=== PATIENT | male | born 1960 | race Caucasian/White ===

== ENCOUNTER 2016-09-07 11:38 | Observation (INO) | payer MEDICAID, OTHER ==
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
[2016-09-07 12:02] LABS: Hematocrit 39.2 % (42.0-52.0); Hemoglobin 13.4 gm/dL (13.5-18.0); Mean Cell Volume 88.7 fl (78-100); Mean Corpuscular Hemoglobin 30.3 pg (27-31); Mean Corpuscular Hgb Conc 34.2 g/dl (32-36); Mean Platelet Volume 9.9 fl (6.0-9.5); Neutrophil # 2.8 K/mm3 (1.3-6.0); Neutrophil % 53.4 % (42-75.0); Platelet Count 209 K/mm3 (150-450); Red Blood Count 4.42 M/mm3 (4.7-6.0); Red Cell Distribution Width 12.3 % (11.5-14.0); White Blood Count 5.2 K/mm3 (4.0-10.5)
[2016-09-07 12:26] LABS: ALT 20 U/L (19-67); AST 15 U/L (0-48); Albumin * 4.1 gm/dl (3.4-5.0); Alkaline Phosphatase * 84 U/L (50-170); Anion Gap 13.6 mmol/L (6.8-13.8); BUN/Creatinine Ratio 19.2 (9.0-21.6); Bilirubin, Total 0.4 mg/dL (0.0-1.1); Blood Urea Nitrogen 15 mg/dL (6-23); Ca. Corrected For Albumin 8.5 mg/dL (8.4-10.2); Calcium * 8.9 mg/dL (7.9-10.9); Chloride 103 mmol/L (97-106); Glucose * 101 mg/dL (70-110); Potassium 3.6 mmol/L (3.4-4.6); Salicylate 3.9 mg/dL (2.8-20.0); Sodium 141 mmol/L (132-142); TSH * 0.854 uIU/mL (0.358-3.74); Total Protein 7.2 gm/dL (6.2-8.2)
[2016-09-07 12:29] LABS: Urine Bilirubin Negative (NEGATIVE); Urine Blood Negative /ul (NEGATIVE); Urine Ketone Negative (NEGATIVE); Urine Nitrite Negative (NEGATIVE); Urine Protein Negative (NEGATIVE)
[2016-09-07 12:41] LABS: Urine Appearance Clear; Urine Bacteria None Seen; Urine Color Yellow; Urine RBC None Seen /hpf (0-5); Urine WBC None Seen /hpf (0-5)
[2016-09-07 12:44] LABS: Cocaine Ur Negative (NEGATIVE); Urine Barbiturate Negative (NEGATIVE); Urine Benzodiazepines Negative (NEGATIVE); Urine Opiates Negative (NEGATIVE); Urine PCP Negative (NEGATIVE); Urine THC Negative (NEGATIVE)
[2016-09-07] MEDS ORDERED: ACETAMINOPHEN 500 MG TABLET PO ONE (13:39)
[2016-09-07] MEDS ORDERED: CYCLOBENZAPRINE HCL 10 MG TABLET PO PRN (17:04)
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
[2016-09-07] MEDS ORDERED: ACETAMINOPHEN 500 MG TABLET PO PRN (18:22)
[2016-09-07] MEDS ORDERED: KETOROLAC TROMETHAMINE 30 MG/ML VIAL IV ONE (18:34)
[2016-09-07] MEDS: PHENYTOIN SODIUM EXTENDED 100 MG CAPSULE PO SCH (20:06)
[2016-09-07] MEDS: GABAPENTIN 400 MG CAPSULE PO SCH (20:06)
[2016-09-07] MEDS: DICLOFENAC SODIUM 75 MG TABLET.DR PO SCH (20:07)
[2016-09-07] MEDS: levETIRAcetam 500 MG TABLET PO SCH (20:07)
[2016-09-07] MEDS ORDERED: ROSUVASTATIN CALCIUM 20 MG TABLET PO SCH (21:00)
[2016-09-07] MEDS ORDERED: AMITRIPTYLINE HCL 50 MG TABLET PO SCH (21:00)
[2016-09-07] MEDS ORDERED: NON-FORMULARY 1 DOSE DOSE (Trazodone Hcl [Trazodone Hcl] 200 MG) PO SCH (21:00)
--- NOTE | 2016-09-07 23:38 | HP ---
Chief Complaint - Chief Complaint Date of Service: 09/07/16 Time of Service: 17:15 Chief Complaint: Seizure History of Present Illness: Luis is a 56 yo male that is self admittedly suicidal. He reportedly had a gun to his head planning to shoot himself when he had a seizure at home that prevented this act. He walked into psychiatry today to be seen emergently. Before being seen he had a seizure in the waiting room and hit his head. A rapid response was called and he was taken to the emergency room and evaluated. HE had no evidence of head injury, electrolytes and thyroid normal by labwork, toxicology screen was negative, and his dilantin level for which he takes for epilepsy was in the normal range. ER called neurology that recommended starting keppra and monitoring over night due to head injury. Patient is willing to seek inpatient psych for suicidal thoughts. He currently reports that he is still suicidal. At the time of my examination he reports overall feeling sore and tired. He request something for soreness over his entire body. He reports no other focal complaints. Denies vision change, no neurological change, no head pain at this time. - Patient's Past Medical History Patient History - Medical: Cataracts, Diabetes Type 2, Depression, Seizures Patient History - Cardiac/Respiratory: No pertinent hx Patient History - Cancer: No Hx of Cancer Patient History - Other: None - Family History Mother Family History - Medical: Diabetes Type 2 Family History - Cancer: Colon Father Family History - Medical: , History Unknown, Alzheimer's Disease, Diabetes Type 2 Family History - Cardiac/Respiratory: History Unknown Family History - Cancer: History Unknown - Social History Living Situations: alone Psych History: Hx of Anxiety, Hx of Depression, Hx of Suicide Attempt Smoking Status: Former smoker Have you smoked in the past 12 months: No Alcohol Use: none Drug Use: none - Immunizations Immunizations Up to Date: Yes Hx Pneumococcal Vaccination: No History of Influenza Vaccine: No Review Of Systems (GEN) - Review of Systems Generalized/Overall Review: Present: Weakness, Malaise, Fatigue EENTM: Present: No Symptoms Reported Respiratory: Present: No Symptoms Reported Cardiac: Present: No Symptoms Reported Abdominal: Present: No Symptoms Reported Genitourinary: Present: No Symptoms Reported Musculoskeletal: Present: Joint Pain, Muscle Pain Neurological: Present: No Symptoms Reported Skin: Present: No Symptoms Reported Immunizations: IMMUNIZATION HX Immunizations Up to Date Yes History of Influenza Vaccine No Hx Pneumococcal Vaccination No Allergies/Adverse Reactions: Allergies Allergy/AdvReac Type Severity Reaction Status Date / Time No Known Allergies Allergy Verified 09/07/16 14:40 Home Medications: HOME MEDICATIONS Amitriptyline HCl [Elavil] 50 mg PO HS 09/07/16 [Last Taken Unknown] Aspirin 81 mg PO DAILY 09/07/16 [Last Taken Unknown] Atorvastatin Calcium [Lipitor] 80 mg PO DAILY 09/07/16 [Last Taken Unknown] Cyclobenzaprine HCl [Flexeril] 10 mg PO TID PRN 09/07/16 [Last Taken Unknown] Diclofenac Sodium 75 mg PO BID 09/07/16 [Last Taken Unknown] FLUoxetine HCL [Prozac] 80 mg PO DAILY 09/07/16 [Last Taken Unknown] Fenofibrate Nanocrystallized [Tricor] 145 mg PO DAILY 09/07/16 [Last Taken Unknown] Gabapentin 800 mg PO TID 09/07/16 [Last Taken Unknown] Metoprolol Succinate [Toprol Xl] 100 mg PO DAILY 09/07/16 [Last Taken Unknown] Phenytoin Sodium Extended 300 mg PO BID 09/07/16 [Last Taken Unknown] metFORMIN HCL [Metformin HCl ER] 500 mg PO HS 09/07/16 [Last Taken Unknown] traZODone HCL [Trazodone HCl] 200 mg PO HS 09/07/16 [Last Taken Unknown] Exam - Exam Vital Signs: Vital Signs - Last Taken Temp 36.5 C 09/07/16 22:00 Pulse 66 09/07/16 22:00 Resp 16 09/07/16 22:00 BP 128/77 09/07/16 22:00 Pulse Ox 98 09/07/16 22:00 Constitutional: Present: Alert, Oriented x3, Cooperative ENT Exam: Present: hearing grossly normal Eye Exam: bilateral eye: normal inspection Respiratory: Present: lungs clear, normal breath sounds Cardiovascular/Chest: Present: regular rate, rhythm, no murmur Abdomen: Present: Normal bowel sounds, soft, nontender, nondistended Extremity: Present: normal inspection, normal capillary refill Skin Exam: Present: normal color, warm/dry, no cyanosis Appearance: Present: appropriate appearance, appropriate insight Eye contact: Present: cooperative, good eye contact, normal speech Thoughts: Present: normal thought pattern, no apparent hallucination Diagnostic Studies: Laboratory Results WBC 5.2 K/mm3 (4.0-10.5) 09/07/16 11:58 RBC 4.42 M/mm3 (4.7-6.0) L 09/07/16 11:58 Hgb 13.4 gm/dL (13.5-18.0) L 09/07/16 11:58 Hct 39.2 % (42.0-52.0) L 09/07/16 11:58 MCV 88.7 fl (78-100) 09/07/16 11:58 MCH 30.3 pg (27-31) 09/07/16 11:58 MCHC 34.2 g/dl (32-36) 09/07/16 11:58 RDW 12.3 % (11.5-14.0) 09/07/16 11:58 Plt Count 209 K/mm3 (150-450) 09/07/16 11:58 MPV 9.9 fl (6.0-9.5) H 09/07/16 11:58 Immature Gran % (Auto) 0.20 % (0.001-0.429) 09/07/16 11:58 Immature Gran # (Auto) 0.01 K/mm3 (0.000-0.0310) 09/07/16 11:58 Neutrophils % 53.4 % (42-75.0) 09/07/16 11:58 Lymphocytes % 36.3 % (20-51) 09/07/16 11:58 Monocytes % 8.5 % (0.0-9) 09/07/16 11:58 Eosinophils % 1.4 % (0.0-3.0) 09/07/16 11:58 Basophils % 0.2 % (0.0-1.0) 09/07/16 11:58 Nucleated RBC % 0.0 k/mm3 (0-1) 09/07/16 11:58 Neutrophils # 2.8 K/mm3 (1.3-6.0) 09/07/16 11:58 Lymphocytes # 1.9 k/mm3 (1.5-3.5) 09/07/16 11:58 Monocytes # 0.4 k/mm3 (0.0-1.0) 09/07/16 11:58 Eosinophils # 0.1 k/mm3 (0.0-0.7) 09/07/16 11:58 Absolute Basophils 0.0 k/mm3 (0.0-0.1) 09/07/16 11:58 Sodium 141 mmol/L (132-142) 09/07/16 11:58 Plasma Sodium 141 mmol/L (130-142) 09/07/16 11:58 Potassium 3.6 mmol/L (3.4-4.6) 09/07/16 11:58 Chloride 103 mmol/L (97-106) 09/07/16 11:58 Carbon Dioxide 28.0 mmol/L (24-32.6) 09/07/16 11:58 Anion Gap 13.6 mmol/L (6.8-13.8) 09/07/16 11:58 BUN 15 mg/dL (6-23) 09/07/16 11:58 Creatinine 0.78 mg/dL (0.4-1.4) 09/07/16 11:58 Est GFR (Non-Af Amer) 110 mL/min (60-130) 09/07/16 11:58 BUN/Creatinine Ratio 19.2 (9.0-21.6) 09/07/16 11:58 Random Glucose 101 mg/dL (70-110) 09/07/16 11:58 Calcium 8.9 mg/dL (7.9-10.9) 09/07/16 11:58 Calcium Adj for Albumin 8.5 mg/dL (8.4-10.2) 09/07/16 11:58 Total Bilirubin 0.4 mg/dL (0.0-1.1) 09/07/16 11:58 AST 15 U/L (0-48) 09/07/16 11:58 ALT 20 U/L (19-67) 09/07/16 11:58 Alkaline Phosphatase 84 U/L (50-170) 09/07/16 11:58 Total Protein 7.2 gm/dL (6.2-8.2) 09/07/16 11:58 Albumin 4.1 gm/dl (3.4-5.0) 09/07/16 11:58 TSH 0.854 uIU/mL (0.358-3.74) 09/07/16 11:58 Urine Color Yellow 09/07/16 12:15 Urine Appearance Clear 09/07/16 12:15 Urine pH 7.0 pH (5.0-7.0) 09/07/16 12:15 Ur Specific [place] 1.020 SP.GR. (1.005-1.030) 09/07/16 12:15 Urine Protein Negative mg/dL (NEGATIVE) 09/07/16 12:15 Urine Glucose (UA) Negative mg/dL (NEGATIVE) 09/07/16 12:15 Urine Ketones Negative mg/dL (NEGATIVE) 09/07/16 12:15 Urine Blood Negative /ul (NEGATIVE) 09/07/16 12:15 Urine Nitrate Negative (NEGATIVE) 09/07/16 12:15 Urine Bilirubin Negative mg/dl (NEGATIVE) 09/07/16 12:15 Urine Urobilinogen 2.0 EU/dl (NORMAL) H 09/07/16 12:15 Ur Leukocyte Esterase Negative /ul (NEGATIVE) 09/07/16 12:15 Urine RBC None seen /hpf (0-5) 09/07/16 12:15 Urine WBC None seen /hpf (0-5) 09/07/16 12:15 Ur Epithelial Cells Trace /hpf (0-5) 09/07/16 12:15 Urine Bacteria None seen (NONE) 09/07/16 12:15 Urine Culture Comments Culture to follow 09/07/16 12:15 Salicylates 3.9 mg/dL (2.8-20.0) 09/07/16 11:58 Urine Opiates Screen Negative (NEGATIVE) 09/07/16 12:15 Acetaminophen Less than 0.2 mcg/mL (10.0-30.0) L 09/07/16 11:58 Barbiturate Screen Negative (NEGATIVE) 09/07/16 12:15 Phenytoin 12.3 mcg/mL (10-20) 09/07/16 11:58 Ur Phencyclidine Scrn Negative (NEGATIVE) 09/07/16 12:15 Urine Amphetamine Negative (NEGATIVE) 09/07/16 12:15 U Benzodiazepines Scrn Negative (NEGATIVE) 09/07/16 12:15 Urine Cocaine Screen Negative (NEGATIVE) 09/07/16 12:15 Urine Marijuana (THC) Negative (NEGATIVE) 09/07/16 12:15 Ethyl Alcohol 4.0 mg/dL (0.0-10.0) 09/07/16 11:58 Assessment/Plan - Assessment/Plan (1) Seizure disorder Assessment: Luis is a 56 yo male with known seizure disorder on dilantin. Discussion with neurology recommended admit to medical observation due to recent seizure with head injury and reported increased frequency of seizures. They recommended starting Keppra and tapering off dilantin slowly. He was given IV keppra 500mg in the ER. Will start Keppra 500mg PO BID. Will admit to observation in seizure precautions. Discussed with psychiatry. Patient has reported many head injuries which may be the source of his seizure history. It is felt by psychiatry that there is an underlying mental disorder as well. There is no evidence of acute medical problems, but will admit to observation due to recent head injury. If he does well overnight plan to discharge him to inpatient psych for treatment of suicidal thoughts. Problem: Acute (2) Suicidal ideation Assessment: Consulting psychiatry. Refer to psych consultation. Problem: Acute
[2016-09-08] MEDS: GABAPENTIN 400 MG CAPSULE PO SCH ×2 (07:13→14:36)
[2016-09-08] MEDS ORDERED: FLUoxetine HCL 20 MG CAPSULE PO SCH (09:00)
[2016-09-08] MEDS ORDERED: ASPIRIN 81 MG TAB.CHEW PO SCH (09:00)
[2016-09-08] MEDS ORDERED: METOPROLOL SUCCINATE 100 MG TABLET.SA PO SCH (09:00)
[2016-09-08] MEDS ORDERED: FENOFIBRATE,MICRONIZED 134 MG CAPSULE PO SCH (09:00)
[2016-09-08] MEDS: levETIRAcetam 500 MG TABLET PO SCH (09:05)
[2016-09-08] MEDS: DICLOFENAC SODIUM 75 MG TABLET.DR PO SCH (09:05)
[2016-09-08] MEDS: PHENYTOIN SODIUM EXTENDED 100 MG CAPSULE PO SCH (09:05)
[2016-09-08] MEDS ORDERED: DIAZEPAM 5 MG TABLET PO ONE (20:24)
--- NOTE | 2016-09-08 20:59 | DS ---
Transfer Discharge Summary - Diagnosis(s)/Problems (1) Depression Problem: Acute (2) Seizure disorder Problem: Acute (3) Suicidal ideation Problem: Acute - Course Description of Stay: Date of admission: 09/07/16 Date of discharge: 09/08/16 Consultations: Dr. Stewart with psychiatry. Radiology Findings: CT of the Head 09/07/16: No acute intracranial hemorrhage or mass effect. Description of Stay: Luis is a 56 yo male that is self admittedly suicidal. He reportedly had a gun to his head planning to shoot himself when he had a seizure at home that prevented this act. He walked into psychiatry today to be seen emergently. Before being seen he had a seizure in the waiting room and hit his head. A rapid response was called and he was taken to the emergency room and evaluated. HE had no evidence of head injury, electrolytes and thyroid normal by labwork, toxicology screen was negative, and his dilantin level for which he takes for epilepsy was in the normal range. ER called neurology that recommended starting keppra and monitoring over night due to head injury. Patient is willing to seek inpatient psych for suicidal thoughts. He currently reports that he is still suicidal. Luis was admitted into the [facility] for 1:1 observation during his admission. he continued to receive keppra 500 mg bid and remained seizure free during his stay. Bed placement was obtained at the medical psychiatric unit at [facility] on 09/08. Patient was given Valium 10 mg PO for anxiety prior to discharge. He was discharged in stable condition. Transportation to [facility] via [facility]. Procedures Performed: none - Medications Medications: Active Medications Amitriptyline HCl (Elavil) 50 mg PO HS [facility] Stop: 10/07/16 21:01 Last Admin: 09/07/16 20:06 Dose: 50 mg Aspirin (Aspirin Chewable) 81 mg PO DAILY [facility] Stop: 10/08/16 09:01 Last Admin: 09/08/16 09:04 Dose: 81 mg Diclofenac Sodium (Voltaren) 75 mg PO BID [facility] Stop: 10/07/16 21:01 Last Admin: 09/08/16 09:05 Dose: 75 mg Fenofibrate (Lofibra) 134 mg PO DAILY [facility] Stop: 10/08/16 09:01 Last Admin: 09/08/16 09:05 Dose: 134 mg Fluoxetine HCl (Prozac) 80 mg PO DAILY [facility] Stop: 10/08/16 09:01 Last Admin: 09/08/16 09:05 Dose: 80 mg Gabapentin (Neurontin) 800 mg PO TID@0700,1400,2100 [facility] Stop: 10/07/16 21:01 Last Admin: 09/08/16 14:36 Dose: 800 mg Levetiracetam (Keppra) 500 mg PO BID [facility] Stop: 10/07/16 21:01 Last Admin: 09/08/16 09:05 Dose: 500 mg Metformin HCl (Glucophage Xr) 500 mg PO HS [facility] Stop: 10/07/16 21:01 Last Admin: 09/07/16 20:07 Dose: 500 mg Metoprolol Succinate (Toprol Xl) 100 mg PO DAILY [facility] Stop: 10/08/16 09:01 Last Admin: 09/08/16 09:05 Dose: 100 mg Phenytoin Sodium (Dilantin) 300 mg PO BID [facility] Stop: 10/07/16 21:01 Last Admin: 09/08/16 09:05 Dose: 300 mg Rosuvastatin Calcium (Crestor) 40 mg PO HS [facility] Stop: 10/07/16 21:01 Last Admin: 09/07/16 20:06 Dose: 40 mg Discontinued Medications Acetaminophen (Tylenol) 1,000 mg PO ONCE ONE Stop: 09/07/16 13:40 Last Admin: 09/07/16 13:40 Dose: 1,000 mg Levetiracetam 500 mg/ Sodium (Chloride) 105 mls @ 400 mls/hr IV ONCE ONE Stop: 09/07/16 13:39 Last Infusion: 09/07/16 14:20 Dose: Infused Ketorolac Tromethamine (Toradol) 30 mg IV ONCE ONE Stop: 09/07/16 18:35 Last Admin: 09/07/16 19:18 Dose: 30 mg - Disposition Disposition: [facility] Condition: Stable Discharge Date: 09/08/16 Discharge Time: 20:30
[2016-09-08 21:27] VITALS: BP 137/84
== END 2016-09-08 20:30 | disposition short-term general hospital (02) ==
LOC: ER 11:38 → SCU 13:26
PROVIDERS: ADMIT Family Medicine; ATTEND Family Medicine
DX: G40.909 Epilepsy, unspecified, not intractable, without status epilepticus (principal); R45.851 Suicidal ideations; F33.2 Major depressive disorder, recurrent severe without psychotic features; E11.9 Type 2 diabetes mellitus without complications; Z87.891 Personal history of nicotine dependence
CPT/HCPCS: 36415; 70450; 80053; 80185; 80307; 81001; 84443; 85025; 87086; 93005; 96365; 96375; 99284; G0378; G0480; G0481

== ENCOUNTER 2016-09-28 09:12 | Emergency (ER) | payer OTHER ==
[2016-09-28] MEDS ORDERED: NALBUPHINE HCL 20 MG/ML AMPUL IM ONE ×2 (09:59→10:02)
[2016-09-28] MEDS ORDERED: NALBUPHINE HCL 20 MG/ML AMPUL ONE (10:02)
--- NOTE | 2016-09-28 10:08 | ERNOTE ---
Lower Extremity HPI - Narrative Date of Service: 09/28/16 - General Lower Extremities Pain: foot: bilateral Time Seen by Provider: 09/28/16 09:59 Source: patient, family Exam Limitations: no limitations - Immun/Allergies/Home Medications Immunizations: IMMUNIZATION HX Immunizations Up to Date No History of Influenza Vaccine No Hx Pneumococcal Vaccination No Allergies/Adverse Reactions: Allergies Allergy/AdvReac Type Severity Reaction Status Date / Time No Known Allergies Allergy Verified 09/28/16 09:16 Home Medications: HOME MEDICATIONS Aspirin 81 mg PO DAILY 09/07/16 [Last Taken Unknown] Atorvastatin Calcium [Lipitor] 80 mg PO DAILY 09/07/16 [Last Taken Unknown] Gabapentin 800 mg PO TID 09/07/16 [Last Taken Unknown] Metoprolol Succinate [Toprol Xl] 100 mg PO DAILY 09/07/16 [Last Taken Unknown] Phenytoin Sodium Extended 300 mg PO BID 09/07/16 [Last Taken Unknown] Aripiprazole [Abilify] 5 mg PO DAILY 09/28/16 [Last Taken Unknown] Duloxetine HCl [Cymbalta] 60 mg PO DAILY 09/28/16 [Last Taken Unknown] LORazepam [Lorazepam (Ativan)] 2 mg IJ PRN PRN 09/28/16 [Last Taken Unknown] Prazosin HCl [Minipress] 1 mg PO TID 09/28/16 [Last Taken Unknown] lamoTRIgine [Lamictal] 150 mg PO BID 09/28/16 [Last Taken Unknown] traMADol HCL [Tramadol HCl] 50 mg PO QID PRN #20 tablet 09/28/16 [Last Taken Unknown] - History of Present Illness Narrative: Pt. comes in with c/o B foot pain that is burning in nature and just on the volar surface of his feet. Pt. has diabetic neuropathy and is on three medications for neuropathy and states that controls his pain for the most part unless he has a flair and then his pain is out of control but resolves with a short burst of PRN pain medication. Pt. states that his primary provider has been managing his diabetes and his pain but would like referral to specialist for management. Pt. denies any recent injury or illness and states taht his blood sugars are controlled. Review of Systems - Review of Systems Constitutional: Present: no symptoms reported. Absent: recent illness, fever, chills, weakness, fatigue EYE: Present: no symptoms reported ENT: Present: no symptoms reported Respiratory: Present: no symptoms reported. Absent: shortness of breath, cough , wheezing Cardiology: Present: no symptoms reported. Absent: chest pain, palpitations, edema Gastrointestinal/Abdominal: Present: no symptoms reported Genitourinary: Present: no symptoms reported Musculoskeletal: Present: joint pain - B foot Skin: Present: no symptoms reported Neurological: Present: numbness - B feet Endocrine: Present: no symptoms reported All Other Systems: All systems neg except as marked - Patient's Past Medical History Patient History - Medical: Cataracts, Diabetes Type 2, Depression, Seizures Patient History - Cardiac/Respiratory: No pertinent hx Patient History - Cancer: No Hx of Cancer Patient History - Surgical Procedures: Other Patient History - Other: None - Family History Mother Family History - Medical: Diabetes Type 2 Family History - Cancer: Colon Father Family History - Medical: , History Unknown, Alzheimer's Disease, Diabetes Type 2 Family History - Cardiac/Respiratory: History Unknown Family History - Cancer: History Unknown - Social History Living Situations: home Psych History: Hx of Anxiety, Hx of Depression, Hx of Suicide Attempt Smoking Status: Former smoker Alcohol Use: none Drug Use: none - Immunizations Immunizations Up to Date: No Hx Pneumococcal Vaccination: No History of Influenza Vaccine: No Physical Exam - Physical Exam General Appearance: Present: wd/wn, alert, no apparent distress Head Exam: Present: normal inspection, no evidence of injury Eye Exam: Normal inspection: bilateral Respiratory: Present: no respiratory distress, normal breath sounds, no accessory muscle use, chest nontender, lungs clear Cardiovascular/Chest: Present: regular rate, rhythm, no murmur, normal peripheral pulses Back Exam: Present: normal inspection Extremity Exam: Present: other - numbness entire volar surface of foot to sharp , dull, and soft. skin on feet is soft and without cracks, lesions, wounds, or callouses.. Absent: pedal edema, bony tenderness Neurological Exam: Present: alert, oriented, normal mood/affect. Absent: motor weakness Skin Exam: Present: normal color, warm/dry. Absent: pallor, skin rash ED Progress - Date and Time Seen: Date and Time: 09/28/16 10:00 Reviewed pt. history and recent blood glucose log and sugars are well controlled but pt. has extensive peripheral neuropathy so will refer pt. to pain specialist and neurologist as pt. requests. - Vital Signs Patient's Vital Signs:: I have reviewed the patient's vital signs. Vital Signs: Vital Signs 09/28/16 09:16 Temperature 36.8 C Pulse Rate 82 Respiratory 14 Rate Blood Pressure 144/92 O2 Sat by Pulse 98 Oximetry - Progress/Reassessment Chief Complaint: Foot Injury/Pain Departure Clinical Impression: Peripheral neuropathy Qualifiers: Peripheral neuropathy type: polyneuropathy, unspecified Qualified Code(s): G62.9 - Polyneuropathy, unspecified Diabetes mellitus Qualifiers: Diabetes mellitus type: type 2 Diabetes mellitus complication status: with neurologic complications Diabetes mellitus complication detail: with polyneuropathy Diabetes mellitus terminal press operator insulin use: with nursing home use Qualified Code(s): E11.42 - Type 2 diabetes mellitus with diabetic polyneuropathy - Departure Disposition: Home self-care Condition: Good Instructions: Diabetic Neuropathy Additional Instructions: Please follow up with Dr Le if you already do not have appoinment, follow up with [facility] [address] [address] Referrals: Eliel Le MD [Consulting Physician] - Prescriptions: traMADol HCL [Tramadol HCl] 50 mg PO QID PRN #20 tablet PRN Reason: Pain
[2016-09-28 15:03] VITALS: BP 141/83
== END 2016-09-28 10:30 | disposition home or self-care (01) ==
LOC: ER 09:12
DX: G62.9 Polyneuropathy, unspecified (principal); E11.42 Type 2 diabetes mellitus with diabetic polyneuropathy; R56.9 Unspecified convulsions; F32.9 Major depressive disorder, single episode, unspecified; Z87.891 Personal history of nicotine dependence

== ENCOUNTER 2016-10-05 07:09 | Emergency (ER) | payer OTHER ==
--- NOTE | 2016-10-05 08:32 | ERNOTE ---
Lower Extremity HPI - Narrative Date of Service: 10/05/16 - General Time Seen by Provider: 10/05/16 08:00 Source: patient Exam Limitations: no limitations - Immun/Allergies/Home Medications Immunizations: IMMUNIZATION HX Immunizations Up to Date No History of Influenza Vaccine No Hx Pneumococcal Vaccination No Allergies/Adverse Reactions: Allergies Allergy/AdvReac Type Severity Reaction Status Date / Time No Known Allergies Allergy Verified 10/05/16 07:22 Home Medications: HOME MEDICATIONS Aspirin 81 mg PO DAILY 09/07/16 [Last Taken Unknown] Atorvastatin Calcium [Lipitor] 80 mg PO DAILY 09/07/16 [Last Taken Unknown] Gabapentin 800 mg PO TID 09/07/16 [Last Taken Unknown] Metoprolol Succinate [Toprol Xl] 100 mg PO DAILY 09/07/16 [Last Taken Unknown] Phenytoin Sodium Extended 300 mg PO BID 09/07/16 [Last Taken Unknown] Aripiprazole [Abilify] 5 mg PO DAILY 09/28/16 [Last Taken Unknown] Duloxetine HCl [Cymbalta] 60 mg PO DAILY 09/28/16 [Last Taken Unknown] Prazosin HCl [Minipress] 1 mg PO TID 09/28/16 [Last Taken Unknown] lamoTRIgine [Lamictal] 150 mg PO BID 09/28/16 [Last Taken Unknown] traMADol HCL [Tramadol HCl] 50 mg PO QID PRN #20 tablet 09/28/16 [Last Taken Unknown] Baclofen 10 mg PO QID #60 tablet 10/05/16 [Last Taken Unknown] Gabapentin 300 mg PO BID #60 capsule 10/05/16 [Last Taken Unknown] - History of Present Illness Narrative: Patient presents with chronic pain, most likely from his diabetic neuropathy. Patient has tried a variety of pain medications without success and is here looking for some sort of relief. Occurred: other - chronic Subsequent Symptoms: Reports: sensory loss - from diabetic neuropathy Prior Treament: Reports: recently seen Review of Systems - Review of Systems Constitutional: Present: See HPI EYE: Present: no symptoms reported ENT: Present: no symptoms reported Respiratory: Present: no symptoms reported Cardiology: Present: no symptoms reported Gastrointestinal/Abdominal: Present: no symptoms reported Genitourinary: Present: no symptoms reported Musculoskeletal: Present: no symptoms reported Skin: Present: no symptoms reported Neurological: Present: See HPI Endocrine: Present: no symptoms reported Hematologic/Lymphatic: Present: no symptoms reported Psych: Present: no symptoms reported - Patient's Past Medical History Patient History - Medical: Cataracts, Diabetes Type 2, Depression, Seizures, Other - diabetic neuropathy Patient History - Cardiac/Respiratory: No pertinent hx Patient History - Cancer: No Hx of Cancer Patient History - Surgical Procedures: Other Patient History - Other: None - Family History Mother Family History - Medical: Diabetes Type 2 Family History - Cancer: Colon Father Family History - Medical: , History Unknown, Alzheimer's Disease, Diabetes Type 2 Family History - Cardiac/Respiratory: History Unknown Family History - Cancer: History Unknown - Social History Living Situations: home Psych History: Hx of Anxiety, Hx of Depression, Hx of Suicide Attempt Alcohol Use: none Drug Use: none - Immunizations Immunizations Up to Date: No Hx Pneumococcal Vaccination: No History of Influenza Vaccine: No Physical Exam - Physical Exam General Appearance: Present: wd/wn, alert, moderate distress Head Exam: Present: normal inspection Eye Exam: Normal inspection: bilateral, PERRL: bilateral Ears, Nose, Throat: Present: normal ENT inspection, H, normal pharynx Neck: Present: normal inspection, nontender Respiratory: Present: no respiratory distress, normal breath sounds, no accessory muscle use, chest nontender, lungs clear Cardiovascular/Chest: Present: regular rate, rhythm, no murmur, normal peripheral pulses Gastrointestinal/Abdominal: Present: normal bowel sounds, nontender, nondistended, soft, no organomegaly Rectal Exam: Present: deferred Back Exam: Present: other - chronic pain and muscle spasms Extremity Exam: Present: non-tender, normal range of motion, no edema, other - chronic tenderness Neurological Exam: Present: alert, oriented, normal mood/affect, other - chronic neuropathy Skin Exam: Present: normal color, warm/dry Lymphatic Exam: Present: no adenopathy ED Progress - Vital Signs Patient's Vital Signs:: I have reviewed the patient's vital signs. Vital Signs: Vital Signs 10/05/16 07:17 Temperature 36.7 C Pulse Rate 75 Respiratory 12 Rate Blood Pressure 149/92 O2 Sat by Pulse 94 Oximetry - Progress/Reassessment Chief Complaint: Lower Extremity Pain/ Injury Plan - Plan Plan: Patient will always be problematic and treatment as he has chronic diabetic neuropathy and chronic generalized body pain. He is been on a host of treatments all too little or no avail. I'm reluctant to start him on narcotics because I believe at the point he will be transferred to being on narcotics for the rest of his life. As the Flexeril is not working we'll try him on a course of baclofen and carbemazipine to treat the spasms and chronic pain. Departure Clinical Impression: Peripheral neuropathy Qualifiers: Peripheral neuropathy type: polyneuropathy, unspecified Qualified Code(s): G62.9 - Polyneuropathy, unspecified Diabetes mellitus Qualifiers: Diabetes mellitus type: type 2 Diabetes mellitus complication status: with neurologic complications Diabetes mellitus complication detail: with unspecified neuropathy Diabetes mellitus terminal gauger supervisor insulin use: with prison use Qualified Code(s): E11.40 - Type 2 diabetes mellitus with diabetic neuropathy, unspecified; Z79.4 - alf (current) use of insulin - Departure Disposition: Home self-care Condition: Good Instructions: Diabetic Neuropathy, Hyperglycemia, [id number] Prescriptions: Baclofen 10 mg PO QID #60 tablet Gabapentin 300 mg PO BID #60 capsule
[2016-10-05 08:33] VITALS: BP 146/88
== END 2016-10-05 08:45 | disposition home or self-care (01) ==
LOC: ER 07:09
DX: G62.9 Polyneuropathy, unspecified (principal); E11.40 Type 2 diabetes mellitus with diabetic neuropathy, unspecified; Z79.899 Other long term (current) drug therapy; F32.9 Major depressive disorder, single episode, unspecified; R56.9 Unspecified convulsions